=== PATIENT | female | born 1935 | race Asian ===

== ENCOUNTER 2018-03-18 19:06 | Inpatient (IN) | payer OTHER ==
[~2018-03-18] VITALS: Ht 162.6 cm; Wt 43.8 kg
[~2018-03-18 19:06] MED LIST: CRESTOR5 M1; CYMBALTA20 M1 PO; DIOVAN320 MG; LAC PO; LEV500 PO; NAMENDA10 M2 PO; PLA75; SYNTHROID0.05 MG PO
[2018-03-18 19:13] VITALS: Ht 162.6 cm; Wt 43.8 kg
[2018-03-18 19:59] LABS: BASOPHIL % 0.2 % (0-2)
[2018-03-18 20:01] LABS: PLATELET COUNT 404 x10^3mcL (130-400)
[2018-03-18 20:06] LABS: CALCIUM 9.8 mg/dL (8.5-10.1); CARBON DIOXIDE 23.4 mmol/L (21-32); CHLORIDE SERUM 109 mmol/L (98-107); CREATININE SERUM 1.2 mg/dL (0.6-1.0); GLUCOSE SERUM 161 mg/dL (74-106); POTASSIUM SERUM 5.1 mmol/L (3.5-5.1); SODIUM SERUM 141 mmol/L (136-145)
[2018-03-18 20:17] LABS: ALKALINE PHOSPHATASE 70 U/L (46-116); ALT/SGPT 30 U/L (14-59); AST/SGOT 21 U/L (15-37); BILIRUBIN TOTAL 0.5 mg/dL (0.20-1.00); TOTAL PROTEIN, SERUM 7.3 g/dL (6.4-8.2)
[2018-03-18 20:19] LABS: ALBUMIN 3.1 g/dL (3.4-5.0)
[2018-03-18 20:20] LABS: CK-MB 0.6 ng/mL (0-3.6)
[2018-03-18 20:37] LABS: microscopic required? NO
[2018-03-18 20:45] LABS: UA SPECIFIC GRAVITY 1.015 (1.005-1.035); urine erythrocyte NEGATIVE (NEGATIVE)
[2018-03-18 22:01] LABS: T3 TOTAL 0.69 ng/mL
[2018-03-18 22:02] LABS: FREE T4 1.34 ng/dL (0.76-1.46); FREE THYROXINE INDEX 2.5 ug/dL (1.4-4.5); T4(THYROXINE) 6.3 ug/dL (4.7-13.3)
[2018-03-18 22:07] LABS: AMPHETAMINE QUAL UR NONE DETECTED (See below)
[2018-03-18 22:16] LABS: MAGNESIUM 2.3 mg/dL (1.8-2.4); PHOSPHOROUS 3.1 mg/dL (2.5-4.9)
[2018-03-18] MEDS ORDERED: ESBRIET267 MG PO (22:17)
[2018-03-18] MEDS ORDERED: SYNTHROID0.05 MG PO (22:17)
[2018-03-18] MEDS ORDERED: DILTIAZEM HCL120 M2 PO (22:17)
[2018-03-18] MEDS ORDERED: ZANTAC 150150 MG PO (22:17)
[2018-03-18] MEDS ORDERED: LINZESS290 MCG PO (22:17)
[2018-03-18] MEDS ORDERED: PLA75 PO (22:18)
[2018-03-18] MEDS ORDERED: APAP500 MG PO (22:18)
[2018-03-18] MEDS ORDERED: MYRBETRIQ25 MG PO (22:19)
[2018-03-18] MEDS ORDERED: CYMBALTA60 M1 PO (22:19)
[2018-03-18 22:40] LABS: IRON 85 ug/dL (50-170); TOTAL IRON BINDING CAPACITY 329 ug/dL (250-450)
[2018-03-18 22:43] VITALS: BP 148/75
[2018-03-18 23:08] LABS: RED BLOOD CELLS 3.37 M/mm3 (4.10-5.10)
[2018-03-19 05:55] VITALS: BP 115/50
[2018-03-19 06:28] LABS: BASOPHIL % 0.3 % (0-2); PLATELET COUNT 343 x10^3mcL (130-400)
[2018-03-19 06:39] LABS: CARBON DIOXIDE 22.3 mmol/L (21-32); CHLORIDE SERUM 112 mmol/L (98-107); CREATININE SERUM 1.1 mg/dL (0.6-1.0); GLUCOSE SERUM 118 mg/dL (74-106); HDL CHOLESTEROL 38 mg/dL (40-60); POTASSIUM SERUM 4.4 mmol/L (3.5-5.1); SODIUM SERUM 145 mmol/L (136-145); TRIGLYCERIDES 87 mg/dL (<150)
[2018-03-19 06:42] LABS: CHOLESTEROL 105 mg/dL (<200); CHOLESTEROL/HDL RATIO 2.8
[2018-03-19 06:44] LABS: RED CELL DISTRIBUTION WIDTH 15.8 % (11.5-14.5)
[2018-03-19 08:19] VITALS: BP 136/69
[2018-03-19 14:04] VITALS: BP 119/72
[2018-03-19 18:37] VITALS: BP 135/66
[2018-03-19 20:50] VITALS: BP 119/58
[2018-03-20 05:06] VITALS: BP 136/77
[2018-03-20 06:40] LABS: BASOPHIL % 0.2 % (0-2); CALCIUM 8.7 mg/dL (8.5-10.1); CARBON DIOXIDE 22.2 mmol/L (21-32); CHLORIDE SERUM 114 mmol/L (98-107); GLUCOSE SERUM 96 mg/dL (74-106); MAGNESIUM 1.8 mg/dL (1.8-2.4); PHOSPHOROUS 3.6 mg/dL (2.5-4.9); PLATELET COUNT 299 x10^3mcL (130-400); POTASSIUM SERUM 4.5 mmol/L (3.5-5.1); SODIUM SERUM 141 mmol/L (136-145)
[2018-03-20 07:15] LABS: RED CELL DISTRIBUTION WIDTH 16.2 % (11.5-14.5)
[2018-03-20 09:45] VITALS: BP 141/75
[2018-03-20 13:41] VITALS: BP 138/73
[2018-03-20 17:10] VITALS: BP 117/62
[2018-03-20 20:48] VITALS: BP 137/78
[2018-03-21 06:36] LABS: CALCIUM 8.5 mg/dL (8.5-10.1); CARBON DIOXIDE 22.7 mmol/L (21-32); CHLORIDE SERUM 112 mmol/L (98-107); CREATININE SERUM 1.1 mg/dL (0.6-1.0); GLUCOSE SERUM 107 mg/dL (74-106); POTASSIUM SERUM 4.3 mmol/L (3.5-5.1); SODIUM SERUM 142 mmol/L (136-145)
[2018-03-21 06:38] LABS: BASOPHIL % 0.3 % (0-2); PLATELET COUNT 290 x10^3mcL (130-400)
[2018-03-21 06:54] LABS: RED CELL DISTRIBUTION WIDTH 16.2 % (11.5-14.5)
[2018-03-21 12:39] VITALS: BP 125/62
[2018-03-21] MEDS ORDERED: LAC PO (16:31)
[2018-03-21] MEDS ORDERED: LEVAQUIN750 MG PO (16:31)
[2018-03-21] MEDS ORDERED: CLEOCIN HCL300 MG PO (16:31)
== END 2018-03-21 18:55 | disposition hospice, home (50) | DRG 177 ==
LOC: ED 19:06 → DU 21:22
PROVIDERS: Emergency Medicine; Family Medicine Sports Medicine
DX: J69.0 Pneumonitis due to inhalation of food and vomit (principal); G93.41 Metabolic encephalopathy; J96.20 Acute and chronic respiratory failure, unspecified whether with hypoxia or hypercapnia; N17.0 Acute kidney failure with tubular necrosis; Z68.1 Body mass index [BMI] 19.9 or less, adult; E44.0 Moderate protein-calorie malnutrition; I69.951 Hemiplegia and hemiparesis following unspecified cerebrovascular disease affecting right dominant side; J84.10 Pulmonary fibrosis, unspecified; E86.0 Dehydration; E11.51 Type 2 diabetes mellitus with diabetic peripheral angiopathy without gangrene; E03.9 Hypothyroidism, unspecified; D53.9 Nutritional anemia, unspecified; Z96.651 Presence of right artificial knee joint; Z86.73 Personal history of transient ischemic attack (TIA), and cerebral infarction without residual deficits; Z88.0 Allergy status to penicillin
CPT/HCPCS: 83880; 84439; 97110-GP; 97116-GP; 97530-GP; J1956; J3490; J7030; J7620; Q0092